=== PATIENT | male | born 1955 | race African-American/Black ===

== ENCOUNTER 2019-03-17 23:09 | Emergency (ER) | payer OTHER ==
[~2019-03-17] VITALS: Ht 175.3 cm; Wt 77.1 kg
[2019-03-18] MEDS ORDERED: TDAP DIPH,PERTUSS,TET VAC/PF 0.5 ML DISP.SYRIN IM ONE ×2 (00:05)
--- NOTE | 2019-03-18 00:14 | NUR ---
Patient discharged to home in stable conditon. Written and verbal after care instructions given. Patient verbalizes understanding of instructions. AMBULATORY W/ STABLE GAIT ALL BELONGINGS W/ PT
[2019-03-18 00:16] VITALS: BP 150/85
== END 2019-03-18 00:16 | disposition home or self-care (01) ==
LOC: ER 23:12
DX: S51.852A Open bite of left forearm, initial encounter (principal); E11.9 Type 2 diabetes mellitus without complications; W50.3XXA Accidental bite by another person, initial encounter; Y93.89 Activity, other specified; Y92.89 Other specified places as the place of occurrence of the external cause; Y99.8 Other external cause status
CPT/HCPCS: 90715; A4663